=== PATIENT | female | born 1995 | race American Indian/Alaskan Native ===

== ENCOUNTER 2017-08-07 18:57 | Emergency (ER) | payer SELFPAY | END 2017-08-07 20:00 | disposition left against medical advice (07) | LOC: ED 18:57 | DX: M79.602 Pain in left arm (principal); Z53.21 Procedure and treatment not carried out due to patient leaving prior to being seen by health care provider ==

== ENCOUNTER 2018-07-18 18:42 | Emergency (ER) | payer SELFPAY ==
[2018-07-18 18:48] VITALS: BP 106/72
[2018-07-18] MEDS ORDERED: IBUPROFEN PO ONE (21:02)
--- NOTE | 2018-07-18 21:05 | Emergency Department Report ---
ED Lower Extremity HPI - General Chief Complaint: Extremity Injury, Lower Stated Complaint: (R) LEG PAIN Time Seen by Provider: 07/18/18 20:37 Source: patient Mode of arrival: Ambulatory Limitations: No Limitations - History of Present Illness Initial Comments: 23-year-old -Chinese female presents to the emergency room for white calf pain onset after ground level fall at work. Patient reports that the pain is better with rest and worse with bending and standing. Patient reports that she can't bend her right knee all the way back. MD Complaint: leg injury -: days(s) (2) Injury: Leg: Right, Knee: Right Place: work Severity scale (0 -10): 8 Improves With: rest Worsens With: weight bearing Context: fall Treatments Prior to Arrival: other (NONE) - Related Data Allergies Allergy/AdvReac Type Severity Reaction Status Date / Time No Known Allergies Allergy Unverified 07/18/18 18:46 ED Review of Systems ROS: Stated complaint: (R) LEG PAIN Other details as noted in HPI Comment: All other systems reviewed and negative Musculoskeletal: arthralgia (right knee), myalgia (right knee) ED Past Medical Hx - Past Medical History Previous Medical History?: No - Surgical History Past Surgical History?: No - Social History Smoking Status: Current Some Day Smoker Substance Use Type: None ED Physical Exam - General Limitations: No Limitations General appearance: alert, in no apparent distress - Head Head exam: Present: atraumatic, normocephalic - Eye Eye exam: Present: EOMI - ENT ENT exam: Present: mucous membranes moist - Respiratory Respiratory exam: Present: normal lung sounds bilaterally. Absent: respiratory distress - Expanded Lower Extremity Exam Right Knee exam: Present: tenderness (Listeria) Lower Leg exam: Present: tenderness (posterior), Eldon's sign. Absent: palpable cord Foot/Toe exam: Present: full ROM. Absent: tenderness, swelling Neuro vascular tendon exam: Present: no vascular compromise - Neurological Exam Neurological exam: Present: alert, oriented X3 ED Course Vital Signs 07/18/18 18:46 Temperature 97.8 F Pulse Rate 95 H Respiratory 16 Rate Blood Pressure 106/72 O2 Sat by Pulse 99 Oximetry ED Lower Extremity MDM - Radiology Data Radiology results: report reviewed FINDINGS: AP lateral views of right tibia and fibula obtained. Bony structures are intact. Joint spaces are preserved. No acute fracture dislocation. IMPRESSION: No acute bony abnormality. Transcribed By: LMA Dictated By: TARA MG MD Electronically Authenticated By: TARA MG MD Signed Date/Time: 07/18/182308 DD/ 11 TD/TT: 07/18/182311 - Medical Decision Making Patient has been evaluated by this provider in fast track. Patient was given ibuprofen for pain management. X-ray tib-fib is negative for any fractures. D-dimer has been ordered since the patient has calf pain Patient reports she is tired of waiting so she is left AMA. Critical care attestation.: If time is entered above; I have spent that time in minutes in the direct care of this critically ill patient, excluding procedure time. ED Disposition Clinical Impression: Leg pain, left Disposition: DC-07 LEFT AGAINST MED ADVICE Is pt being admited?: No Does the pt Need Aspirin: No Condition: Stable Referrals: MANUEL VOGEL MD [Primary Care Provider] - 3-5 Days Forms: AMA Form
--- NOTE | 2018-07-18 23:09 | XRay Report ---
FINAL REPORT EXAM: XR TIBIA FIBULA 1V RT HISTORY: fall with leg pain COMPARISON: None available. FINDINGS: AP lateral views of right tibia and fibula obtained. Bony structures are intact. Joint spaces are pr eserved. No acute fracture dislocation. IMPRESSION: No acute bony abnormality.
== END 2018-07-19 04:08 | disposition left against medical advice (07) ==
LOC: ED 18:42
DX: M25.561 Pain in right knee (principal); F17.200 Nicotine dependence, unspecified, uncomplicated
CPT/HCPCS: 36415; 84703; 85379